=== PATIENT | male | born 1970 | race Caucasian/White ===

== ENCOUNTER → 2020-10-27 10:02 | Outpatient (CLI) | payer MEDICAID, SELFPAY ==
[2020-10-27 10:33] LABS: Basophils # 0.1 K/mm3 (0-0.2); Eosinophils # 0.5 K/mm3 (0.0-0.4); Eosinophils % 5.6 % (0.1-12.0); Hematocrit 47.6 % (42.0-52.0); Hemoglobin 15.6 g/dL (14.1-18.0); Lymphocytes # 2.5 K/mm3 (0.7-4.5); Lymphocytes % 29.1 % (10-50); Mean Corpuscular HGB Conc 32.7 g/dL (31.8-35.4); Mean Corpuscular Hemoglobin 30.4 pg (27.0-31.2); Mean Platelet Volume 7.4 fl (7.4-10.4); Monocytes # 0.5 K/mm3 (0.1-1.0); Neutrophils % 58.4 % (37.0-80.0); Platelet Count 205 K/mm3 (142-424); Red Blood Count 5.12 M/mm3 (4.60-6.20); White Blood Count 8.5 K/mm3 (4.8-10.8)
[2020-10-27 11:09] LABS: Alanine Aminotransferase 34 U/L (12-78); Albumin Level 4.5 g/dl (3.5-5.0); Albumin/Globulin Ratio 1.6 (1.1-1.8); Alkaline Phosphatase 90 U/L (38-126); Amylase 114 U/L (30-110); Anion Gap 10.8 mEq/L (5-15); Aspartate Amino Transferase 38 U/L (17-59); Bilirubin,Total 0.5 mg/dl (0.2-1.3); Blood Urea Nitrogen 15 mg/dl (9-20); Carbon Dioxide 31 mmol/L (22.0-30.0); Chloride 104 mmol/L (98-107); Chol/HDL Ratio 2.6 (1-3.5); Cholesterol 158 mg/dl (140-200); Estimated Glomerular Filt Rate 89 ml/min (>60); GFR (African American) 108 ML/MIN (>60); Globulin 2.8 g/dL (1.3-3.2); Glucose 102 mg/dl (74-100); HDL Cholesterol 60 mg/dl (40-60); Lipase 292 U/L (23-300); Potassium 4.8 mmoL/L (3.5-5.1); Sodium 141 mmol/L (136-145); Total Protein,Serum 7.3 g/dl (6.3-8.2); Triglycerides 66 mg/dl (30-150); VLDL Cholesterol 13 mg/dL (0-40)
[2020-10-27 11:20] LABS: Direct LDL Cholesterol 80.47 mg/dL (100-129)
[2020-10-27 11:25] LABS: 25-OH Vitamin D, Total 44.5 ng/mL (30-100)
[2020-10-27 11:28] LABS: T4 (Thyroxine) 9.2 ug/dl (5.53-11.0)
[2020-10-27 11:42] LABS: Thyroid Stimulating Hormone 1.02 uIU/mL (0.465-4.68)
[2020-10-27 12:00] LABS: Vitamin B12 653 pg/mL (239-931)
[2020-10-28 22:27] LABS: PSA, Free 0.19 ng/mL; Prostate Specific Ag 0.8 ng/mL (0.0-4.0)
== END ==
PROVIDERS: Visit Provider Physician Assistant
DX: R10.13 Epigastric pain (principal); R91.1 Solitary pulmonary nodule; R53.83 Other fatigue; R63.4 Abnormal weight loss; Z12.5 Encounter for screening for malignant neoplasm of prostate
CPT/HCPCS: 36415; 80053; 80061; 82150; 82306; 82607; 83690; 84153; 84154; 84436; 84443; 85025